=== PATIENT | male | born 1985 | race African-American/Black ===

== ENCOUNTER 2019-02-10 13:59 | Emergency (ER) | payer OTHER ==
[2019-02-10] MEDS ORDERED: TETANUS & DIPHTHERIA TOX,ADULT 0.5 ML VIAL ONE (14:40)
[2019-02-10] MEDS ORDERED: LIDOCAINE 2% MPF 5 ML VIAL ONE (14:40)
--- NOTE | 2019-02-10 14:59 | RAD REPORT ---
EXAM DESCRIPTION: RAD - Hand Right 3 View - 02/10/2019 2:48 pm CLINICAL HISTORY: laceration;Pain COMPARISON: No comparisons FINDINGS: Soft tissue laceration is seen along the dorsal wrist soft tissues. No fracture or foreign body visualized.
--- NOTE | 2019-02-10 16:04 | EDPHYS ---
Physician Documentation [facility] Name: Jonathan Engel Age: 33 yrs Sex: Male : 1985 Arrival Date: 02/10/2019 Time: 14:01 Bed 30 Private MD: ED Physician Alexandro Herrera HPI: 02/10 16:01 This 33 yrs old Black Male presents to ER via Law Enforcement with complaints of kb Laceration. 16:02 The patient has a laceration related to: broken glass occurred [facility], and there are no kb complicating factors. The injury was accidental. The laceration(s) is(are) located on the dorsum of right hand. Onset: The symptoms/episode began/occurred just prior to arrival. Associated signs and symptoms: The patient has no apparent associated signs or symptoms. The patient has not experienced similar symptoms in the past. The patient has not recently seen a physician. Pt reports cutting hand on glass. Has full sensation and ROM of hand. Reports it feels normal except for pain at site of injury. Historical: - Allergies: 14:10 PENICILLINS; mg2 - Home Meds: 14:10 Prozac Oral [Active]; mg2 - PMHx: 14:10 Depression; mg2 - PSHx: 14:10 elbow surgery; mg2 - Immunization history:: Last tetanus immunization: unknown, Flu vaccine is not up to date. - Social history:: Smoking status: Patient/guardian denies using tobacco, Patient uses alcohol, occasionally. Patient/guardian denies using street drugs, IV drugs. - Ebola Screening: : No symptoms or risks identified at this time. ROS: 15:57 Constitutional: Negative for fever, chills, and weight loss, Cardiovascular: Negative kb for chest pain, palpitations, and edema, Respiratory: Negative for shortness of breath, cough, wheezing, and pleuritic chest pain, Abdomen/GI: Negative for abdominal pain, nausea, vomiting, diarrhea, and constipation, MS/Extremity: Negative for injury and deformity, Neuro: Negative for headache, weakness, numbness, tingling, and seizure. 15:57 Skin: Positive for laceration(s), of the right hand. Exam: 15:57 Constitutional: This is a well developed, well nourished patient who is awake, alert, kb and in no acute distress. Head/Face: Normocephalic, atraumatic. Chest/axilla: Normal chest wall appearance and motion. Nontender with no deformity. No lesions are appreciated. Cardiovascular: Regular rate and rhythm with a normal S1 and S2. No gallops, murmurs, or rubs. Normal PMI, no JVD. No pulse deficits. Respiratory: Lungs have equal breath sounds bilaterally, clear to auscultation and percussion. No rales, rhonchi or wheezes noted. No increased work of breathing, no retractions or nasal flaring. Abdomen/GI: Soft, non-tender, with normal bowel sounds. No distension or tympany. No guarding or rebound. No evidence of tenderness throughout. Neuro: Awake and alert, GCS 15, oriented to person, place, time, and situation. Cranial nerves II-XII grossly intact. Motor strength 5/5 in all extremities. Sensory grossly intact. Cerebellar exam normal. Normal gait. 15:57 Musculoskeletal/extremity: Extremities: noted in the dorsum of right hand: laceration, pain, neurovascularly intact, ROM: full passive range of motion, Full ROM of right hand and each digit. Each joint examined, pt has full rom of PIP and DIP joints. Pt has full sensation of right hand. Partial tendon laceration noted. , Circulation is intact in all extremities. Sensation intact. Tendon exam: postive for partial tendon laceration dorsum of right hand. 15:57 Skin: injury, laceration(s), the wound is approximately 4 cm(s), of the dorsum of right hand, that can be described as clean, no foreign body, irregular, without bleeding. Vital Signs: 14:07 BP 129 / 89; Pulse 86; Resp 18; Pulse Ox 97% on R/A; Weight 127.01 kg; Height 6 ft. 1 mg2 in. (185.42 cm); Pain 8/10; 16:21 BP 122 / 78; Pulse 80; Resp 18; Pulse Ox 100% on R/A; Pain 0/10; mg2 14:07 Body Mass Index 36.94 (127.01 kg, 185.42 cm) mg2 Laceration: 15:55 Wound Repair of 4cm ( 1.6in ) tendon involved laceration to dorsum of right hand. kb Irregularly shaped.. Distal neuro/vascular/tendon intact. Anesthesia: Wound infiltrated with 4 mls of 1% lidocaine. Wound prep: Extensive cleansing with hibiclenz by me, Wound irrigation with saline by me. Skin closed with 6 4-0 Prolene using interrupted sutures and sterile technique. Dressed with pressure dressing. Patient tolerated well. MDM: 14:02 Patient medically screened. kb 15:55 Data reviewed: vital signs, nurses notes. Data interpreted: Pulse oximetry: on room air kb is 97 %. Interpretation: normal. Counseling: I had a detailed discussion with the patient and/or guardian regarding: the historical points, exam findings, and any diagnostic results supporting the discharge/admit diagnosis, radiology results, the need for outpatient follow up, a family practitioner, to return to the emergency department if symptoms worsen or persist or if there are any questions or concerns that arise at home. 02/10 14:26 Order name: Hand Right 3 View XRAY; Complete Time: 15:07 kb 02/10 14:26 Order name: Prolene, Sutures; Complete Time: 14:31 kb 02/10 14:26 Order name: Dressing - Wound; Complete Time: 15:42 kb 02/10 14:26 Order name: Gloves, Sterile; Complete Time: 14:31 kb 02/10 14:26 Order name: Setup Suture Tray; Complete Time: 14:31 kb Administered Medications: 14:32 Drug: Tetanus-Diphtheria Toxoid Adult 0.5 ml {Naval Science Teacher: Docitt. Exp: mg2 11/28/2020. Lot #: [id number]. } Route: IM; Site: right deltoid; 15:42 Follow up: Response: No adverse reaction mg2 15:42 Drug: Lidocaine (1 %) 1 vials Volume: 5 ml; Route: Infiltration; mg2 16:18 Follow up: Response: No adverse reaction; Marked relief of symptoms mg2 Disposition: 02/10/19 16:04 Discharged to Home. Impression: Laceration without foreign body of right hand, Partial laceration of tenden . - Condition is Stable. - Discharge Instructions: Laceration Care, Adult, [id number]. - Medication Reconciliation Form, Thank You Letter, Antibiotic Education, Prescription Opioid Use form. - Follow up: Emergency Department; When: As needed; Reason: Worsening of condition. Follow up: Private Physician; When: 2 - 3 days; Reason: Recheck today's complaints, Continuance of care, Re-evaluation by your physician. - Notes: Sutures out in 10 days Signatures: Dispatcher [employer] EDBrendon Alvaresistin, SOLUTION CONSULTANT-C SOLUTION CONSULTANT-Ckb Hussain Manrique, RN RN mg2 Corrections: (The following items were deleted from the chart) 16:04 15:57 Skin: injury, laceration(s), the wound is approximately 4 cm(s), of the dorsum of kb right hand, that can be described as clean, no foreign body, irregular, without bleeding, 16:05 15:57 Musculoskeletal/extremity: ROM: full passive range of motion, Full ROM of right kb hand and each digit. Each joint examined, pt has full rom of PIP and DIP joints. Pt has full sensation of right hand. Partial tendon laceration noted. , Tendon exam: postive for partial tendon laceration dorsum of right hand, 16:23 16:04 02/10/2019 16:04 Discharged to Home. Impression: Laceration without foreign body mg2 of right hand; Partial laceration of tenden . Condition is Stable. Forms are Medication Reconciliation Form, Thank You Letter, Antibiotic Education, Prescription Opioid Use. Follow up: Emergency Department; When: As needed; Reason: Worsening of condition. Follow up: Private Physician; When: 2 - 3 days; Reason: Recheck today's complaints, Continuance of care, Re-evaluation by your physician. kb
--- NOTE | 2019-02-10 16:04 | ER ---
Nurse's Notes [facility] Name: Jonathan Engel Age: 33 yrs Sex: Male : 1985 Arrival Date: 02/10/2019 Time: 14:01 Bed 30 Private MD: Diagnosis: Laceration without foreign body of right hand;Partial laceration of tenden Presentation: 02/10 14:02 Presenting complaint: Patient states: i sustained deep laceration on my right hand by mg2 the window glass \T\ 1245 pm today. Transition of care: senior living. Complicating Factors: glass. Onset of symptoms was February 10, 2019 at 12:45. Risk Assessment: Do you want to hurt yourself or someone else? Patient reports no desire to harm self or others. Initial Sepsis Screen: Does the patient meet any 2 criteria? No. Patient's initial sepsis screen is negative. Does the patient have a suspected source of infection? No. Patient's initial sepsis screen is negative. Care prior to arrival: None. 14:02 Method Of Arrival: [facility] 14:02 Acuity: ANTONIO 3 mg2 Triage Assessment: 14:11 General: Appears in no apparent distress. comfortable, Behavior is calm, cooperative. mg2 Pain: Complains of pain in right hand Pain does not radiate. Pain currently is 8 out of 10 on a pain scale. EENT: No signs and/or symptoms were reported regarding the EENT system. Neuro: Level of Consciousness is awake, alert, obeys commands, Oriented to person, place, time, situation. Cardiovascular: Capillary refill < 3 seconds Patient's skin is warm and dry. Respiratory: Airway is patent Respiratory effort is even, unlabored, Respiratory pattern is regular, symmetrical. GI: No signs and/or symptoms were reported involving the gastrointestinal system. : No signs and/or symptoms were reported regarding the genitourinary system. Derm: Skin is intact, is healthy with good turgor, Skin is pink, warm \T\ dry. normal. Derm: Wound noted right hand Wound is lacerated. Musculoskeletal: Injury Description: Laceration sustained to right hand. Historical: - Allergies: 14:10 PENICILLINS; mg2 - Home Meds: 14:10 Prozac Oral [Active]; mg2 - PMHx: 14:10 Depression; mg2 - PSHx: 14:10 elbow surgery; mg2 - Immunization history:: Last tetanus immunization: unknown, Flu vaccine is not up to date. - Social history:: Smoking status: Patient/guardian denies using tobacco, Patient uses alcohol, occasionally. Patient/guardian denies using street drugs, IV drugs. - Ebola Screening: : No symptoms or risks identified at this time. Screenin:10 Abuse screen: Denies threats or abuse. Denies injuries from another. Nutritional mg2 screening: No deficits noted. Tuberculosis screening: No symptoms or risk factors identified. Fall Risk None identified. Assessment: 16:18 General: Appears in no apparent distress. comfortable, Behavior is calm, cooperative. mg2 Pain: Complains of pain in dorsum of right hand and right hand Pain does not radiate. Pain currently is 2 out of 10 on a pain scale. Quality of pain is described as aching, Pain began suddenly, few hours ago Is intermittent. Neuro: Level of Consciousness is awake, alert, obeys commands, Oriented to person, place, time, situation. Cardiovascular: Capillary refill < 3 seconds Patient's skin is warm and dry. Respiratory: Airway is patent Respiratory effort is even, unlabored, Respiratory pattern is regular, symmetrical. GI: No signs and/or symptoms were reported involving the gastrointestinal system. : No signs and/or symptoms were reported regarding the genitourinary system. EENT: No signs and/or symptoms were reported regarding the EENT system. Derm: Skin is healthy with good turgor, Skin is pink, warm \T\ dry. normal, Wound noted dorsum of right hand. Musculoskeletal: Circulation, motion, and sensation intact. Capillary refill < 3 seconds. Injury Description: Laceration sustained to dorsum of right hand is clean, 0.5 to 2.5 cm long, not bleeding, was sustained 4-6 hours ago. is bleeding a small amount. Vital Signs: 14:07 BP 129 / 89; Pulse 86; Resp 18; Pulse Ox 97% on R/A; Weight 127.01 kg; Height 6 ft. 1 mg2 in. (185.42 cm); Pain 8/10; 16:21 BP 122 / 78; Pulse 80; Resp 18; Pulse Ox 100% on R/A; Pain 0/10; mg2 14:07 Body Mass Index 36.94 (127.01 kg, 185.42 cm) mg2 ED Course: 14:01 Patient arrived in ED. ss 14:02 Hussain Manrique, RN is Primary Nurse. mg2 14:02 Addie Aguilera FNP-C [facility]. kb 14:02 Alexandro Herrera MD is Attending Physician. kb 14:07 Triage completed. mg2 14:10 Arm band placed on. mg2 14:15 Patient has correct armband on for positive identification. Door closed. Warm blanket mg2 given. 14:45 Hand Right 3 View XRAY In Process Unspecified. EDMS 16:20 Assist provider with laceration repair on dorsum of right hand that was between 2.6 to mg2 7.5 cm using sutures. Set up tray. Performed by Addie MEEK Dressed with 4X4s, Patient tolerated well. Patient did not have IV access during this emergency room visit. Administered Medications: 14:32 Drug: Tetanus-Diphtheria Toxoid Adult 0.5 ml {Manager Drilling: Anteryon. Exp: mg2 11/28/2020. Lot #: [id number]. } Route: IM; Site: right deltoid; 15:42 Follow up: Response: No adverse reaction mg2 15:42 Drug: Lidocaine (1 %) 1 vials Volume: 5 ml; Route: Infiltration; mg2 16:18 Follow up: Response: No adverse reaction; Marked relief of symptoms mg2 Outcome: 16:04 Discharge ordered by . kb 16:22 Discharged to Law Enforcement mg2 16:22 Condition: stable 16:22 Discharge instructions given to patient, police, Instructed on discharge instructions, follow up and referral plans. wound care, Demonstrated understanding of instructions, follow-up care, wound care. 16:23 Patient left the ED. mg2 Signatures: Dispatcher [employer] EDNC Addie Aguilera FNP-C FNP-Ckb Smirch, [place], RN RN Hussain Manrique, RN RN mg2 Corrections: (The following items were deleted from the chart) 16:21 14:16 No provider procedures requiring assistance completed. mg2 mg2 16:22 16:20 Assist provider with laceration repair on dorsum of right hand that was between mg2 2.6 to 7.5 cm using Set up tray. Performed by Addie MEEK Dressed with 4X4s, Patient tolerated well. mg2
== END 2019-02-10 16:23 | disposition home or self-care (01) ==
LOC: ER 13:59
PROC: 0JQJ0ZZ Repair Right Hand Subcutaneous Tissue and Fascia, Open Approach (ICD-10-PCS; principal; 2019-02-10)
DX: S61.411A Laceration without foreign body of right hand, initial encounter (principal); S66.921A Laceration of unspecified muscle, fascia and tendon at wrist and hand level, right hand, initial encounter; W25.XXXA Contact with sharp glass, initial encounter; Y93.9 Activity, unspecified; Y92.149 Unspecified place in prison as the place of occurrence of the external cause; Z23 Encounter for immunization; Z88.0 Allergy status to penicillin; F32.9 Major depressive disorder, single episode, unspecified
CPT/HCPCS: 90714